=== PATIENT | male | born 1990 | race American Indian/Alaskan Native ===

== ENCOUNTER 2016-07-02 10:36 | Emergency (ER) | payer MEDICAID ==
[2016-07-02 11:41] VITALS: BP 131/80
[2016-07-02 14:48] LABS: Bilirubin,Urine NEG (Negative); Blood,Urine NEG (Negative); Ketones,Urine NEG (Negative); Leukocyte Esterase,Urine NEG (Negative); Mucus,Urine FEW /HPF; Nitrite,Urine NEG (Negative); Protein,Urine <15 mg/dL mg/dL (Negative); Urobilinogen,Urine < 2.0 mg/dL (<2.0); WBC,Urine < 1.0 /HPF (0.0-6.0)
--- NOTE | 2016-07-02 15:38 | Emergency Department Report ---
Entered by MAURA ANDRADE, acting as scribe for TG STEIN PA. ED Male HPI - General Chief complaint: Urogenital-Male Stated complaint: BURN WHEN URINATING Source: patient Mode of arrival: Ambulatory Limitations: No Limitations - History of Present Illness Initial comments: 25 year old male with Hx Chlamydia presents to the ED for evaluation of burning with urination for 6 days. He reports associated subjective fever, urinary frequency, left lower abdominal pain, and clear penile discharge for 5 days. Notes recent unprotected sexual contact; partners STI status is unknown. Denies hematuria, rash, N/V/D. MD Complaint: dysuria Onset/Timin -: days(s) Consistency: constant Improves with: none Worsens with: urination discharge (clear), dysuria, fever (subjective). denies: rash, blood in urine, nausea/vomiting - Related Data Sexually active: Yes (recent unprotected sex. Partner's STI status unknown.) Previous Rx's Medication Instructions Recorded Last Taken Type Phenazopyridine [Pyridium] 200 mg PO TID #6 tab 07/02/16 Unknown Rx Allergies Allergy/AdvReac Type Severity Reaction Status Date / Time No Known Allergies Allergy Unverified 07/02/16 11:37 ED Past Medical Hx - Past Medical History Previous Medical History?: No - Surgical History Past Surgical History?: No - Social History Smoking Status: Never Smoker Substance Use Type: None - Medications Home Medications: Home Medications Medication Instructions Recorded Confirmed Last Taken Type Phenazopyridine [Pyridium] 200 mg PO TID #6 tab 07/02/16 Unknown Rx ED Physical Exam - General Limitations: No Limitations General appearance: other (The patient is well-developed and well-nourished. Patient is in NAD. ) - Head Head exam: Present: atraumatic, normocephalic - Respiratory Respiratory exam: Present: normal lung sounds bilaterally. Absent: respiratory distress, wheezes, rales, rhonchi - Cardiovascular Cardiovascular Exam: Present: regular rate, normal rhythm, normal heart sounds. Absent: systolic murmur, diastolic murmur, rubs, gallop - GI/Abdominal GI/Abdominal exam: Present: soft, normal bowel sounds. Absent: distended, tenderness, guarding, rebound - External exam: Present: normal external exam, other ([employer] present for exam ; no discharge). Absent: erythema, swelling, lesions, bleeding - Back Exam Back exam: Absent: CVA tenderness (R), CVA tenderness (L) - Neurological Exam Neurological exam: Present: alert, oriented X3 - Psychiatric Psychiatric exam: Present: normal affect, normal mood ED Course Vital Signs 07/02/16 07/02/16 11:37 11:41 Temperature 98.1 F 98.1 F Pulse Rate 57 L 57 L Respiratory 20 16 Rate Blood Pressure 131/80 Blood Pressure 131/80 [Left] O2 Sat by Pulse 100 100 Oximetry ED Medical Decision Making - Lab Data Vital Signs 07/02/16 07/02/16 11:37 11:41 Temperature 98.1 F 98.1 F Pulse Rate 57 L 57 L Respiratory 20 16 Rate Blood Pressure 131/80 Blood Pressure 131/80 [Left] O2 Sat by Pulse 100 100 Oximetry Lab Results 07/02/16 Range/Units 13:37 Urine Color Yellow (Yellow) Urine Turbidity Clear (Clear) Urine pH 8.0 H (5.0-7.0) Ur Specific [place] 1.019 (1.003-1.030) Urine Protein <15 mg/dl (Negative) mg/dL Urine Glucose (UA) Neg (Negative) mg/dL Urine Ketones Neg (Negative) mg/dL Urine Blood Neg (Negative) Urine Nitrite Neg (Negative) Urine Bilirubin Neg (Negative) Urine Urobilinogen < 2.0 (<2.0) mg/dL Ur Leukocyte Esterase Neg (Negative) Urine WBC (Auto) < 1.0 (0.0-6.0) /HPF Urine RBC (Auto) 2.0 (0.0-6.0) /HPF Urine Mucus Few /HPF - Medical Decision Making 25 year old male presents to the ED c/o burning with urination for 6 days and clear penile discharge for 5 days. His urinalysis within normal limits. Gonorrhea and chlamydia testing has been noted. Patient is in no acute distress at this time. He will be discharged home and is encouraged to follow up with a primary care provider. He will be sent home on Pyridium and is encouraged to return to the emergency room for any worsening symptoms. ED Disposition Clinical Impression: Dysuria, Penile discharge Disposition: DISCHARGED TO HOME OR SELFCARE Is pt being admited?: No Does the pt Need Aspirin: No Condition: Stable Instructions: Dysuria (ED) Additional Instructions: Follow-up with primary care provider. Return to the emergency department if symptoms worsen. Prescriptions: Phenazopyridine [Pyridium] 200 mg PO TID #6 tab Referrals: PRIMARY CARE,MD [Primary Care Provider] - 3-5 Days [facility] - [facility]-5 Days Forms: Work/School Release Form(ED), STI Treatment and Prevention Time of Disposition: 15:34 This documentation as recorded by the RAYMOND smith REBEKAH,accurately reflects the service I personally performed and the decisions made by ,TG STEIN PA.
== END 2016-07-02 15:41 | disposition home or self-care (01) ==
LOC: ED 10:36
DX: R30.0 Dysuria (principal); R36.9 Urethral discharge, unspecified
CPT/HCPCS: 81001; 99282